=== PATIENT | female | born 1995 | race Two or more races ===

== ENCOUNTER 2021-09-13 09:37 | Emergency (ER) | payer SELFPAY ==
[~2021-09-13] VITALS: Ht 160 cm; Wt 65.0 kg
--- NOTE | 2021-09-13 09:49 | PHYS DOC ---
Past Medical History Past Surgical History: No Surgical History General Adult EDM: Chief Complaint: VAGINAL BLEEDING HPI: HPI: Patient is a 26 year old female who presents with pelvic cramping and vaginal bleeding. She had an episode of heavy vaginal bleeding at home this morning, and the bleeding is now improved. She denies dizziness, chest pain, cough,, headache, syncope, focal weakness. She denies any focal abdominal or pelvic pain. She denies fluid leakage or vaginal discharge. She denies urinary symp toms. She is approximately 12 weeks by dates. She has seen a certified master locksmith here in the OB office. She is not sure when she has her next appointment. She denies any pelvic or abdominal trauma. No previous history of miscarriage per her report. This is her second . Review of Systems: Review of Systems: Constitutional: Denies fever or chills. [] Respiratory: Denies cough or shortness of breath. [] Cardiovascular: Denies chest pain or edema. [] GI: Generalized pelvic pain and cramping. Denies nausea, vomiting, diarrhea, constipation. : Denies any urinary symptoms. Reports vaginal bleeding. Pelvic pain/cr amping Musculoskeletal: Low back pain. Integument: Denies rash. [] Neurologic: Denies headache, focal weakness or sensory changes. Denies dizziness or syncope. Psychiatric: Anxiety as it pertains to current clinical condition Heart Score: C/O Chest Pain: No Risk Factors: Risk Factors: DM, Current or recent (<one month) smoker, HTN, HLP, family history of CAD, obesity. Risk Scores: Score 0 - 3: 2.5% MACE over next 6 weeks - Discharge Home Score 4 - 6: 20.3% MACE over next 6 weeks - Admit for Clinical Observation Score 7 - 10: 72.7% MACE over next 6 weeks - Early Invasive Strategies Allergies: Allergies: Allergies Coded Allergies Type Severity Reaction Last Updated Verified No Known Drug Allergies 09/13/21 No Physical Exam: PE: Constitutional: Well developed, well nourished, no acute distress, non-toxic appearance. [] HENT: Normocephalic, atraumatic Eyes: Conjunctiva normal, no discharge. [] Neck: Normal range of motion, no tenderness, supple, no stridor. [] Cardiovascular:Heart rate regular rhythm, +2 radial and +2 posterior tibial pulses bilateral Lungs & Thorax: Bilateral breath sounds clear to auscultation [] Abdomen: Abdomen is soft, nondistended, minimal suprapubic tenderness to palpation. Mild voluntary guarding. No rebound tenderness. Normal bowel sounds. No palpable masses organomegaly. No CVA tenderness. : No external lesions are noted. There is a scant amount of blood in the vaginal vault, no active bleeding. Cervix is clear, nonerythematous, no purulent discharge. No CMT. Mild suprapubic/mid uterine tenderness to palpation with bimanual exam. Cervical os is closed. Skin: Warm, dry, no erythema, no rash. [] Back: No tenderness, no CVA tenderness. [] Extremities: No tenderness, no cyanosis, no clubbing, ROM intact, no edema. [] Neurologic: She is awake, alert, oriented x3, no facial asymmetry, gait is steady and nonantalgic, no ataxia, gross motor and sensation is intact, speech is clear and fluent. Psychologic: Affect normal, judgement normal, mood normal. She is pleasant and cooperative. Current Patient Data: Vital Signs: Vital Signs Date Time Temp Pulse Resp B/P (MAP) Pulse Ox O2 Delivery O2 Flow Rate FiO2 09/13/21 09:41 98.4 106 16 129/81 (97) 98 Room Air 98.4 EKG: EKG: [] Radiology/Procedures: Radiology/Procedures: IMAGING REPORT Signed PATIENT: MELE CHASEOUNT: [id number] : 1995 LOCATION: ER AGE: 26 SEX: F EXAM STATUS: REG ER ORD. PHYSICIAN: MITZI SMITH DO REASON: vaginal bleeding, PROCEDURE: OB < 14 WKS First trimester OB ultrasound CLINICAL HISTORY: Vaginal bleeding, . COMPARISON: None available. TECHNIQUE: transabdominal sonography was performed FINDINGS: An intrauterine gestational sac is present, normal in morphology.. An embryo is identified . Cardiac activity is visualized and documented at a rate of 157 beats per minute. There are 2 small right-sided subchorionic hemorrhages measuring 3.2 x 1.6 x 2.2 cm and 1.5 x 1.6 x 1.8 cm. Based on a crown rump length averaging 4.81 cm, the estimated gestational age is 11 weeks 4 days. Estimated date of delivery is 03/31/2022 Right ovary: 3.6 x 2.6 x 2.1 cm Left ovary: 3.5 x 1.5 x 1.8 cm Normal ovarian Doppler exam. There is no pelvic free fluid. IMPRESSION: 1. Single viable intrauterine gestation with estimated sonographic gestational age of 11 weeks 4 days, with estimated delivery date of 03/31/2022. 2. Small perigestational hemorrhage. Electronically signed by: Rajeev Sanchez MD (09/13/2021 11:07 AM) [id number] DICTATED and SIGNED BY: RAJEEV SANCHEZ MD DATE: 09/13/21 [id number] 0 Course & Med Decision Making: Course & Med Decision Making Pertinent Labs and Imaging studies reviewed. (See chart for details) The patient is resting comfortably, she is hemodynamically stable. Blood type is A+. Hemoglobin is stable. Ultrasound demonstrates a live IUP, just under 12 weeks. She does have a small subchorionic hemorrhage. She is not actively or briskly hemorrhaging at this point time. I have discussed all of the findings, differential diagnosis and plan of care with the patient. I recommend strict pelvic rest, avoidance of intercourse or tampons. I recommend she contact Dr. Oconnell's office on Thursday to arrange for close follow-up. Strict return precautions are given. Dragon Disclaimer: Chris Disclaimer: This electronic medical record was generated, in whole or in part, using a voice recognition dictation system. Departure Departure Impression: Primary Impression: Threatened Additional Impression: Subchorionic hemorrhage in first trimester Disposition: 01 HOME / SELF CARE / HOMELESS Condition: STABLE Referrals: ZENIA OCONNELL MD Patient Instructions: Subchorionic Hematoma, Threatened Miscarriage Additional Instructions: Your bleeding is due to a small amount of blood around the your baby's sac. Your baby is alive, with a normal heart beat. Your blood work is normal. Please contact Dr. Oconnell's office on Thursday to arrange for close follow-up. You will need a repeat exam in most likely also a repeat ultrasound to see if this bleeding is getting bigger or if it is improving. Please return to the ER for more severe pain, heavy or uncontrolled bleeding, severe dizziness, vomiting, temperature of 100.4 or higher or for any other concerns. Please adhere to strict pelvic rest, this means no intercourse, no tampons, nothing per the vagina. MITZI SMITH DO Sep 13, 2021 09:49
[2021-09-13 10:04] LABS: BILIRUBIN,URINE NEGATIVE (NEG); CLARITY,URINE CLOUDY; COLOR,URINE AMBER; NITRITE,URINE NEGATIVE (NEG); PH,URINE 6.5 (<5.0-8.0); PROTEIN,URINE 30 mg/dL (NEG-TRACE); UROBILINOGEN,URINE 0.2 mg/dL (0.2 mg/dL)
[2021-09-13 10:36] LABS: BASO % 0 % (0-3); EOS # 0.1 x10^3/uL (0.0-0.7); EOS % 1 % (0-3); HEMATOCRIT 37.5 % (36.0-47.0); LYMPH # 1.5 x10^3/uL (1.0-4.8); LYMPH % 22 % (24-48); MEAN CORPUSCULAR HEMOGLOBIN 30 pg (25-35); MEAN CORPUSCULAR HGB CONC 35 g/dL (31-37); MEAN CORPUSCULAR VOLUME 88 fL (79-100); MONO # 0.3 x10^3/uL (0.0-1.1); MONO % 5 % (0-9); NEUT # 4.9 x10^3/uL (1.8-7.7); NEUT % 72 % (31-73); PLATELET COUNT 206 x10^3/uL (140-400); RED BLOOD COUNT 4.27 x10^6/uL (3.50-5.40); RED CELL DISTRIBUTION WIDTH 13.2 % (11.5-14.5); WHITE BLOOD COUNT 6.8 x10^3/uL (4.0-11.0)
[2021-09-13 10:38] LABS: AMORPHOUS SEDIMENT,UR PRESENT /HPF; BACTERIA,URINE FEW /HPF (0-FEW); RBC,URINE >40 /HPF (0-2)
[2021-09-13 10:47] LABS: CALCIUM 7.9 mg/dL (8.5-10.1); CREATININE 0.4 mg/dL (0.6-1.0); GFR 194.5; POTASSIUM 3.4 mmol/L (3.5-5.1)
--- NOTE | 2021-09-13 11:10 | RAD ---
First trimester OB ultrasound CLINICAL HISTORY: Vaginal bleeding, . COMPARISON: None available. TECHNIQUE: transabdominal sonography was performed FINDINGS: An intrauterine gestational sac is present, normal in morphology.. An embryo is identified . Cardiac activity is visualized and documented at a rate of 157 beats per minute. There are 2 small right-kale ed subchorionic hemorrhages measuring 3.2 x 1.6 x 2.2 cm and 1.5 x 1.6 x 1.8 cm. Based on a crown rump length averaging 4.81 cm, the estimated gestational age is 11 weeks 4 days. Es timated date of delivery is 03/31/2022 Right ovary: 3.6 x 2.6 x 2.1 cm Left ovary: 3.5 x 1.5 x 1.8 cm Normal ovarian Doppler exam. There is no pelvic free fluid. IMPRESSION: 1. Single viable intrauterine gestation with estimated sonographic gestational age of 11 weeks 4 days , with estimated delivery date of 03/31/2022. 2. Small perigestational hemorrhage. Electronically signed by: Rajeev Wilson MD (09/13/2021 11:07 AM) [id number]
[2021-09-13 11:37] VITALS: BP 101/66
[2021-09-16 19:15] LABS: GC PROBE Negative (Negative)
== END 2021-09-13 12:10 | disposition home or self-care (01) ==
LOC: ER 09:37
DX: O20.0 Threatened abortion (principal); Z3A.12 12 weeks gestation of pregnancy
CPT/HCPCS: 36415; 76801; 80048; 81001; 81025; 84702; 85025; 86850; 86900; 86901; 87086; 87491; 87591; 99285; Q0111